=== PATIENT | female | born 1960 | race African-American/Black ===

== ENCOUNTER 2019-05-13 15:22 | Emergency (ER) | payer MEDICAID ==
[~2019-05-13] VITALS: Ht 170.2 cm; Wt 61.2 kg
[2019-05-13 15:28] VITALS: Ht 170.2 cm; Wt 61.2 kg
[2019-05-13 17:59] LABS: BASOPHIL % 0.8 % (0-2); PLATELET COUNT 287 x10^3mcL (130-400)
[2019-05-13 18:02] LABS: RED CELL DISTRIBUTION WIDTH 14.8 % (11.5-14.5)
[2019-05-13 18:08] LABS: CALCIUM 9.3 mg/dL (8.5-10.1); CARBON DIOXIDE 31.9 mmol/L (21-32); CHLORIDE SERUM 105 mmol/L (98-107); CREATININE SERUM 0.6 mg/dL (0.6-1.0); GFR1 > 60 mL/min; GLUCOSE SERUM 89 mg/dL (74-106); POTASSIUM SERUM 4.1 mmol/L (3.5-5.1); SODIUM SERUM 144 mmol/L (136-145)
[2019-05-13 18:08] LABS: AMPHETAMINE QUAL UR NONE DETECTED (See below)
[2019-05-13 18:12] LABS: ALBUMIN 4.1 g/dL (3.4-5.0); ALKALINE PHOSPHATASE 96 U/L (46-116); ALT/SGPT 21 U/L (14-59); AST/SGOT 15 U/L (15-37); BILIRUBIN TOTAL 0.27 mg/dL (0.20-1.00); TOTAL PROTEIN, SERUM 7.9 g/dL (6.4-8.2)
[2019-05-13 18:24] LABS: FREE T4 0.96 ng/dL (0.76-1.46); FREE THYROXINE INDEX 2.6 ug/dL (1.4-4.5); T4(THYROXINE) 7.3 ug/dL (4.7-13.3)
[2019-05-13 18:36] LABS: T3 TOTAL 1.23 ng/mL
[2019-05-13 19:29] VITALS: BP 127/77
== END 2019-05-13 19:29 | disposition home or self-care (01) ==
LOC: ED 15:22
PROVIDERS: Emergency Medicine
DX: K29.70 Gastritis, unspecified, without bleeding (principal); R53.1 Weakness
CPT/HCPCS: 36415; 84439